=== PATIENT | male | born 1995 | race African-American/Black ===

== ENCOUNTER 2024-05-10 02:05 | Emergency (ER) | payer SELFPAY ==
[2024-05-10 02:02] VITALS: BP 144/80; PULSE 99; RESP 19; TEMP 36.5; O2SAT 99
[2024-05-10 02:20] LABS: Basophils Percent Auto 0.5 % (0.2-1.2); Eosinophils Absolute Auto 0.1 K/mm3 (0-0.3); Eosinophils Percent Auto 1.1 % (0-4.4); Hematocrit 39.1 % (42.0-52.0); Hemoglobin 12.9 g/dL (14.0-18.0); Immature Granulocyte Absolute 0.01 K/mm3 (0.00-0.031); Immature Granulocyte Percent A 0.2 % (0-0.5); Lymphocytes Percent Auto 57.4 % (18.3-44.2); Mean Corpuscular Volume 87.9 fl (80-100); Mean Platelet Volume 9.6 fl (7.4-10.4); Monocytes Absolute Auto 0.4 K/mm3 (0.1-0.6); Monocytes Percent Auto 6.2 % (2.6-8.5); Neutrophils Absolute Auto 2.1 K/mm3 (1.3-6.7); Neutrophils Percent Auto 34.6 % (45.5-73.1); Platelet Count Result 241 k/mm3 (150-375); Red Blood Count 4.45 M/mm3 (4.6-6.20); Red Cell Distribution Width 14.3 % (11.5-14.5); White Blood Count 6.1 K/mm3 (4.5-10.0)
[2024-05-10 02:36] LABS: Ethanol 232 mg/dL (<10)
--- NOTE | 2024-05-10 02:51 | ED.ALCOHOL ---
HPI - Alcohol General Chief Complaint: Alcohol Stated Complaint: Alcohol Time Seen by Provider: 05/10/24 02:34 History of Present Illness HPI narrative: 29-year-old male presenting to the emergency department for evaluation for alcohol intoxication. Patient does admit to drinking multiple ?cocktails ?. [place]. Patient denies any homicidal or suicidal ideation. Patient was initially having decreased responsiveness when he was found by bystanders. Upon arrival emergency department patient is more alert and appropriate. Patient denies any pain or complaints. Review of Systems Review of Systems: All systems reviewed & are unremarkable except as noted in HPI and below Exam Narrative: APPEARANCE: Well appearing, no pain, no distress, well-nourished. HEAD: normocephalic, atraumatic. EYES: PERRLA/EOMI, conjunctivae clear. NOSE: Normal no drainage EARS:TMS clear with good light reflex. THROAT: Pharynx clear, no exudate. NECK: Supple. No adenopathy, no masses. RESPIRATORY: Airway patent, respirations nonlabored. Clear to auscultation bilaterally, no rales, rhonchi, wheezing. CARDIOVASCULAR: Regular rate and rhythm without murmurs rubs or gallops. ABDOMINAL: Soft, nontender, nondistended, normal bowel sounds MUSCULOSKELETAL: Moves all extremities. Strength/ROM intact, No edema, No calf tenderness. NEURO: Alert. Cranial nerves II through XII intact. Grossly intact SKIN: Warm, dry. Normal Color Course Vital Signs Vital signs: Vital Signs Temperature 97.7 F 05/10/24 02:02 Pulse Rate 99 05/10/24 02:02 Respiratory Rate 05/10/24 02:02 Blood Pressure 144/80 H 05/10/24 02:02 Pulse Oximetry 99 05/10/24 02:02 Oxygen Delivery Room Air 05/10/24 02:02 Temperature 97.7 F 05/10/24 02:02 Pulse Rate 99 05/10/24 02:02 Respiratory Rate 05/10/24 02:02 Blood Pressure 144/80 H 05/10/24 02:02 Pulse Oximetry 99 05/10/24 02:02 Oxygen Delivery Room Air 05/10/24 02:02 MDM - Alcohol MDM Narrative Medical decision making narrative: 29-year-old male presenting emergency department for evaluation for alcohol intoxication. Patient emphatically denies any homicidal or suicidal ideation. Patient does admit to alcohol consumption. Upon arrival emergency department patient was alert and oriented and able to ambulate emergency department without issue. Patient was unable to get a ride by family but did call and who per and was well-appearing at time of discharge from emergency department. Differential Diagnosis Differential diagnosis: Likely alcohol withdrawal delirium and alcohol intoxication Lab Data 05/10/24 02:12 05/10/24 02:08 Labs: Lab Results 05/10/24 05/10/24 Range/Units 02:08 02:12 WBC 6.1 (4.5-10.0) K/mm3 RBC 4.45 L (4.6-6.20) M/mm3 Hgb 12.9 L (14.0-18.0) g/dL Hct 39.1 L (42.0-52.0) % MCV 87.9 (80-100) fl MCH 29.0 (26-34) pg MCHC 33.0 (32-36) g/dl RDW 14.3 (11.5-14.5) % Plt Count 241 (150-375) k/mm3 MPV 9.6 (7.4-10.4) fl Immature Gran % (Auto) 0.2 (0-0.5) % Neut % (Auto) 34.6 L (45.5-73.1) % Lymph % (Auto) 57.4 H (18.3-44.2) % [place] % (Auto) 6.2 (2.6-8.5) % Eos % (Auto) 1.1 (0-4.4) % Baso % (Auto) 0.5 (0.2-1.2) % Lymph # (Auto) 3.50 H (0.9-3.2) K/mm3 [place] # (Auto) 0.4 (0.1-0.6) K/mm3 Eos # (Auto) 0.1 (0-0.3) K/mm3 Baso # (Auto) 0.0 (0.0-0.1) K/mm3 Abs Immat Gran (auto) 0.01 (0.00-0.031) K/mm3 Absolute Neuts (auto) 2.1 (1.3-6.7) K/mm3 Absolute Nucleated RBC 0.000 (0.0-0.012) K/mm3 Nucleated RBC % 0.0 (0.0-0.2) % Sodium Cancelled Potassium Cancelled Chloride Cancelled Carbon Dioxide Cancelled Anion Gap Cancelled BUN Cancelled Creatinine Cancelled Estim Creat Clear Calc Cancelled Estimated GFR Cancelled Glucose Cancelled Calcium Cancelled Total Bilirubin Cancelled AST
== END 2024-05-10 02:52 | disposition home or self-care (01) ==
PROVIDERS: Emergency Provider Emergency Medicine
DX: F10.129 Alcohol abuse with intoxication, unspecified (principal); Y90.7 Blood alcohol level of 200-239 mg/100 ml
CPT/HCPCS: 36415; 80307; 85025; 99283